=== PATIENT | female | born 1995 | race Caucasian/White ===

== ENCOUNTER 2016-11-26 21:18 | Emergency (ER) | payer MEDICAID ==
[2016-11-26 21:19] VITALS: BP 126/94
== END 2016-11-27 | disposition home or self-care (01) ==
LOC: ED 21:18
DX: J45.901 Unspecified asthma with (acute) exacerbation (principal); Z79.899 Other long term (current) drug therapy
CPT/HCPCS: J7512; J7613; J7644

== ENCOUNTER 2017-05-04 20:40 | Emergency (ER) | payer MEDICAID ==
[2017-05-04 22:45] VITALS: BP 124/49
== END 2017-05-04 22:45 | disposition home or self-care (01) ==
LOC: ED 20:40
DX: L27.1 Localized skin eruption due to drugs and medicaments taken internally (principal); T36.8X5A Adverse effect of other systemic antibiotics, initial encounter; J45.909 Unspecified asthma, uncomplicated; Y92.89 Other specified places as the place of occurrence of the external cause

== ENCOUNTER 2020-05-23 05:43 | Emergency (ER) | payer OTHER, SELFPAY ==
[~2020-05-23] VITALS: Ht 157.5 cm; Wt 71.7 kg
[2020-05-23 05:47] VITALS: Ht 157.5 cm; Wt 71.7 kg
[2020-05-23 07:30] VITALS: BP 108/75
== END 2020-05-23 07:47 | disposition home or self-care (01) ==
LOC: ED 05:43
DX: J45.901 Unspecified asthma with (acute) exacerbation (principal); J12.9 Viral pneumonia, unspecified
CPT/HCPCS: J7512